=== PATIENT | female | born 1955 | race Caucasian/White ===

== ENCOUNTER 2020-08-19 12:00 | Outpatient (REF) | payer MEDICARE, OTHER, SELFPAY ==
--- NOTE | 2020-08-19 15:15 | MR_ITS ---
MRI OF THE BRAIN WITH AND WITHOUT IV CONTRAST INDICATION: Breast cancer with liver metastases and vision problems. COMPARISON: None available. TECHNIQUE: Multiplanar multisequence MR imaging of the brain was obtained without and following the administration of 10 mL of Gadavist without complication. FINDINGS: There is a solitary peripherally enhancing and centrally cystic versus necrotic intra-axial lesion within the left occipital lobe measuring up to 3.2 cm TV by 3 cm AP, most concerning for a metastatic lesion in light of the clinical history which is surrounded by significant parenchymal edema resulting in local cerebral sulcal effacement without midline shift. A few punctate foci of susceptibility signal along the lower margin of the lesion may reflect small foci of mineralization or trace blood products. There are T2 signal changes within the supratentorial white matter, likely chronic microangiopathy. There is no hydrocephalus, extra-axial surface collection, or herniation. The major flow voids at the skull base are preserved. There is no acute infarct on diffusion-weighted imaging. There is no intracranial hemorrhage on the gradient recalled echo acquisition. The midline structures are normal. The cerebellar tonsils are normally positioned. The cerebellum and brainstem are normal. The craniocervical junction is normal. Osseous marrow signal intensity is homogenous. There is a 1.7 cm soft tissue nodule within the superficial left parotid lobe which is nonspecific. IMPRESSION: - There is a 3.2 cm solitary peripherally enhancing and centrally cystic versus necrotic intra-axial lesion within the left occipital lobe. Surrounding parenchymal edema with mass effect including local cerebral sulcal effacement without midline shift. A few punctate foci of susceptibility signal along the lower margin of the lesion may reflect small foci of mineralization or trace blood products. No definite additional enhancing lesions intracranially though assessment is very limited by the degree of vascular pulsation artifact. High-resolution postcontrast imaging could be obtained as clinically indicated to assess for any additional lesions. - There is a 1.7 cm soft tissue nodule within the superficial left parotid lobe which is nonspecific. Findings discussed with Dr. Cunningham at 2:21 PM on 08/19/2020.
--- NOTE | 2020-08-23 14:11 | MHC.HEMONCSW ---
FAXED MD ORDER FOR STAT PET SCAN TO [facility]. INFORMED THEM THAT PT ALSO HAS A STAT RADIATION CONSULT MATT. AT [facility]. UPDATED DR. SILVERIO.
== END 2020-08-19 12:01 | disposition home or self-care (01) ==
LOC: HO.MRI 12:00
PROVIDERS: Visit Provider Internal Medicine
DX: Z51.11 Encounter for antineoplastic chemotherapy (principal); C50.919 Malignant neoplasm of unspecified site of unspecified female breast; C78.7 Secondary malignant neoplasm of liver and intrahepatic bile duct; C80.1 Malignant (primary) neoplasm, unspecified; C7B.8 Other secondary neuroendocrine tumors; M25.511 Pain in right shoulder; H53.8 Other visual disturbances; F17.210 Nicotine dependence, cigarettes, uncomplicated; Z79.891 Long term (current) use of opiate analgesic; Z85.3 Personal history of malignant neoplasm of breast; Z90.722 Acquired absence of ovaries, bilateral; Z90.13 Acquired absence of bilateral breasts and nipples; Z92.3 Personal history of irradiation
CPT/HCPCS: 47000; 70553; 76942; 88307; 88341; 88342; 88360; 99213

== ENCOUNTER → 2024-07-07 14:26 | Outpatient (RCR) | payer MEDICARE, OTHER, SELFPAY ==
[2020-08-16] VITALS (7 sets, daily range): BP systolic 125–152; BP diastolic 26–70; PULSE 64–73; RESP 18–20; TEMP 36.4–36.6; O2SAT 94–98; BMI 34.4
--- NOTE | 2020-08-16 | US_ITS ---
EXAMINATION: ULTRASOUND-GUIDED LIVER BIOPSY CLINICAL INFORMATION: Liver lesions. History of breast cancer. COMPARISON: Previous CT of the abdomen and pelvis 08/03/2020 TECHNIQUE: Procedure and risks and benefits including bleeding and infection were discussed with the patient and informed consent was obtained. The patient was positioned in the left decubitus position. The right upper quadrant was prepped and draped in the usual sterile fashion. The skin and soft tissues were anesthetized with 1% lidocaine plain. Using ultrasound guidance and a coaxial system, access to a 1.5 cm hypoechoic lesion in the right lobe of the liver was obtained. 5 20-gauge core biopsies were obtained. There is no complication. Patient received Versed 1 mg and fentanyl 50 mcg intravenously during the procedure. Total sedation time was 15 minutes. FINDINGS: There are numerable small hypoechoic lesions seen diffusely throughout the liver suggestive of metastatic disease. A 1.5 cm lesion in the right lobe of the liver was targeted for core biopsy. IMPRESSION: Ultrasound-guided liver biopsy.
[2020-08-16] MEDS: fentaNYL citrate/PF 100 MCG/2 ML VIAL 50 MCG IVPUSH (13:48)
[2020-08-16] MEDS: Lidocaine HCl 1 % MPF 5 ML VIAL SUBCUT (14:38)
[2020-08-16] MEDS: Midazolam HCl/PF 2 MG/2 ML VIAL 1 MG IVPUSH (16:01)
[2020-08-19 09:12] VITALS: BP 114/53; PULSE 76; RESP 18; TEMP 36.1; O2SAT 95; BMI 32.5
--- NOTE | 2020-08-19 09:23 | PM.HEMONCPN ---
Medical Summary - Medical Summary Chief complaint: Follow-up Medical Summary: Diagnosis: Multiple hepatic lesions worrisome for metastatic cancer, history of left breast cancer, BRCA 2 positive, ER positive, AR negative, HER2 positive. Diagnosed with left breast cancer in 2012, underwent lumpectomy/sentinel node biopsy stage T1c N0 on 10/23/2013. One sentinel node negative for malignancy. Residual tumor was about 0.2 cm in size. Found to be BRCA 2 positive, underwent bilateral mastectomy in 2013. Adjuvant chemotherapy with Adriamycin and cyclophosphamide followed by 2 cycles of Taxol and Herceptin for 1 year. 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 Completed 5 years of Arimidex in 2019. 08/20/2014 bilateral mastectomy. Pathology-left simple mastectomy with fat necrosis, calcifications. Right breast simple mastectomy, fat necrosis with calcifications. Bilateral ovarianectomy around 2014. She was followed by Dr. Denise from [facility] until 2019. Medical and Surgical History Hypertension Anxiety Vitamin B12 deficiency Breast cancer, BRCA 2 positive Bilateral mastectomies Oophorectomy Family History Mother of breast cancer at age 48. Father of Alzheimer's at age 84. One brother developed colorectal cancer at age 74, 1 brother of metastatic lung cancer. Social History She is and lives at home with her . She has 4 children. She smokes 5-6 cigarettes daily. Denies alcohol use. Menstrual History Menarche age 13, menopause age 49, 4 para 4. Interval History Interval history: patient is here in follow-up, she is accompanied by her and daughter today. She is doing about the same. Persistent weakness, fatigue, headaches and blurry vision. She is not having focal weakness, numbness or tingling. No falls. No incontinence of bowel or bladder. No chest pain or acute shortness of breath. No significant cough. Review of Systems - Constitutional Reports as per HPI, Reports no additional constitutional complaints [facility] Medical History: Medical History (Last Updated 08/19/20 @ 15:55 by Janey Cunningham MD) Anxiety Breast cancer, left HTN (hypertension) Liver metastasis Vitamin B 12 deficiency Family History: Family History (Last Updated 08/19/20 @ 07:36 by Merline Muro RN) Mother Breast CA Employee No problems noted. Father Alzheimer's dementia Brother Colorectal cancer Metastatic cancer to lung Surgical History: Surgical History (Last Updated 08/16/20 @ 12:42 by Deisi Charles RN) H/O bilateral oophorectomy History of bilateral mastectomy History of lumpectomy of left breast Smoking status: Current every day smoker Home Medications and Allergies Home Medications Medication Instructions Recorded Confirmed Type lisinopril 10 mg PO DAILY 08/16/20 08/16/20 History sertraline 50 mg PO DAILY 08/16/20 08/16/20 History docusate sodium [Colace] 100 mg PO DAILY 08/19/20 08/19/20 History gabapentin 300 mg PO BID 08/19/20 08/19/20 History polyethylene glycol 3350 [Miralax] 17 g PO DAILY 08/19/20 08/19/20 History senna 8.6 mg PO BEDTIME 08/19/20 08/19/20 History Allergies Allergy/AdvReac Type Severity Reaction Status Date / Time codeine [CODEINE] Allergy Unknown NAUSEA/VOMI Verified 08/16/20 12:42 TING Exam Vital signs: Vital Signs Temp 97.0 F 08/19/20 09:12 Pulse 76 08/19/20 09:12 Resp 18 08/19/20 09:12 BP 114/53 L 08/19/20 09:12 Pulse Ox 95 08/19/20 09:12 Intake & Output 08/18/20 08/19/20 08/19/20 18:59 06:59 18:59 Other: Weight 94.12 kg Weight 94.12 kg Body Mass Index 32.5 - Constitutional Present: no acute distress - Routine HEENT Exam Head: Present: normal inspection Eye: Present: EOMI - Routine Neck Exam Absent: lymphadenopathy - Routine Respiratory Exam Present: CTAB - Routine Cardiovascular Exam Cardiovascular: Present: S1, S2 - Routine Abdominal Exam Present: distended, soft - Routine Extremities Exam Absent: calf tenderness, joint swelling - Routine Skin Exam Present: intact - Routine Neurological Exam Present: oriented X3 - Routine Psychiatric Exam Present: normal affect Progress Note: A/P (1) Liver metastases Status: Acute Assessment and plan: 1. This is a 64-year-old woman with history of left breast cancer diagnosed in 2012, status post bilateral mastectomy, stage pT1c N0, ER positive AR negative, HER2 positive invasive ductal carcinoma. She is BRCA 2 positive. She now presents with multiple liver lesions, left periaortic/retroperitoneal lymphadenopathy noted on CT abdomen/pelvis performed 08/03/2020. She is quite symptomatic with pain and weight loss. LDH is over 1000. CEA is 11. CA 27-29 and CA 19- 9 not elevated. Preliminary report from pathologists is it is not breast cancer, appears to be a neuroendocrine tumor. 2. Brain MRI performed 08/19/2020 shows 3.2 cm left occipital lobe enhancing lesion with edema but no right shift. She does report symptoms of headache and bilateral blurry vision. I discussed above findings with patient and family. She is being started on dexamethasone 4 mg p.o. b.i.d.. She is being referred urgently to Radiation Oncology for consultation at [facility]. PET scan is being scheduled for next week. I discussed chemotherapy, tentatively she is being booked for carboplatin/etoposide since it is behaving like a neuroendocrine tumor. Final pathology is pending. We discussed possible side effects of chemotherapy such as cytopenias, risk of infection, organ toxicity, and alopecia. She is willing to proceed with above recommendations. Follow-up in 1 week. - Time Spent With Patient Total time spent is greater than 50% in coordination of care (as documented) at patient's floor/unit and/or counseling patient: 25 - 35 minutes
--- NOTE | 2020-08-19 11:33 | MHC.HEMONCSW ---
pt informed today she has aggressive stage 4 cancer, primary site unknown at this time. going for mri of brain. supportive counseling provided.
--- NOTE | 2020-08-19 12:33 | MHC.HEMONCNA ---
medicare insurance. no pa required for chemotherapy.
--- NOTE | 2020-08-19 12:54 | MHC.HEMONC ---
Exam; Biopsy completed 08/16, brain MRI being completed today. Plan for PET Scan this Saturday, chemo tentatively booked for 08/24 for carboplatin/etoposide. Patient made aware, jamie in pharmacy made aware. Per anh weber not need PA for chemo. Patient has medicare. official Chemo teach and consent not completed awaiting Final pathology. Patient/daughter given info on carbo/etoposide. Please call daughter with anything.
--- NOTE | 2020-08-24 09:41 | MHC.HEMONCSW ---
MEDICARE INSURANCE. FAXED MD ORDER FOR PET SCAN TO [facility]. THEY WILL EXPEDITE AND SCHEDULE PT...THEY DWIGHT;L LET DAUGHTER KNOW OF DATE AND TIME.
--- NOTE | 2020-08-24 10:39 | MHC.HEMONCSW ---
[facility] SCHEDULED WITH DAUGHTER FOR 09/01/20 9:50AM. THEY DO NOT HAVE A SOONER APPOINTMENT.
--- NOTE | 2020-09-09 11:09 | P.PNHO_ITS ---
Medical Summary - Medical Summary Chief complaint: Right shoulder pain Medical Summary: Diagnosis: Multiple hepatic lesions worrisome for metastatic cancer, history of left breast cancer, BRCA 2 positive, ER positive, MA negative, HER2 positive. Diagnosed with left breast cancer in 2012, underwent lumpectomy/sentinel node biopsy stage T1c N0 on 10/23/2013. One sentinel node negative for malignancy. Residual tumor was about 0.2 cm in size. Found to be BRCA 2 positive, underwent bilateral mastectomy in 2013. Adjuvant chemotherapy with Adriamycin and cyclophosphamide followed by 2 cycles of Taxol and Herceptin for 1 year. 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 Completed 5 years of Arimidex in 2019. 08/20/2014 bilateral mastectomy. Pathology-left simple mastectomy with fat necrosis, calcifications. Right breast simple mastectomy, fat necrosis with calcifications. Bilateral ovarianectomy around 2014. She was followed by Dr. Denise from [facility] until 2019. Biopsy of liver lesion performed 08/16/2020 revealed well-differentiated neuroendocrine tumor, grade 2. Immunostains were reactive for CDX2, nonreactive for TTF1 suggesting primary from GI tract or pancreas and not lung primary. Ki 67 index was approximately 5%. Brain MRI performed 08/19/2020 revealed 3.2 cm peripherally enhancing necrotic mass within the left occipital lobe surrounding parenchymal edema including sulcal effacement without midline shift. Additional brain lesions could not be ruled out because of vascular pulsation artifact. Patient received whole-brain radiation treatment at [facility]. PET-CT performed 09/01/2020 at [facility] revealed large 6.4 cm centrally necrotic intensely hypermetabolic mass in the right upper lobe suggestive of malignancy. Metastatic left supraclavicular lymph node, numerous hypermetabolic liver metastasis, mildly hypermetabolic left para-aortic lymph nodes and focus of activity or in left occipital lobe all confirming metastasis. Family History Mother of breast cancer at age 48. Father of Alzheimer's at age 84. One brother developed colorectal cancer at age 74, 1 brother of metastatic lung cancer. Social History She is and lives at home with her . She has 4 children. She smokes 5-6 cigarettes daily. Denies alcohol use. Menstrual History Menarche age 13, menopause age 49, 4 para 4. Interval History Interval history: patient is here in follow-up, she is accompanied by her and daughter today. She has developed significantly severe right shoulder pain for the last 2 weeks. She has been taking 10 mg of oxycodone every 4 hours. She reports the pain is constant, not radiating, not associated with numbness or tingling or weakness of the right upper extremity. She has no acute cough, no fever or chills. She is not having focal weakness, numbness or tingling. No falls. No incontinence of bowel or bladder. She had MRI of spine at [facility] and this was reported as negative, no bone metastasis or cord compression. She continues to have blurry vision and this has not changed with brain radiation. She just completed brain radiation as of today. Review of Systems - Constitutional Reports no additional constitutional complaints - Eyes Reports change in vision - Cardiovascular Reports no additional cardiovascular complaints - Respiratory Reports no additional respiratory complaints [facility] Medical History: Medical History (Last Updated 08/19/20 @ 15:55 by Janey Cunningham MD) Anxiety Breast cancer, left HTN (hypertension) Liver metastasis Vitamin B 12 deficiency Family History: Family History (Last Updated 08/19/20 @ 07:36 by Merline Muro RN) Mother Breast CA Employee No problems noted. Father Alzheimer's dementia Brother Colorectal cancer Metastatic cancer to lung Surgical History: Surgical History (Last Updated 08/16/20 @ 12:42 by Deisi Charles RN) H/O bilateral oophorectomy History of bilateral mastectomy History of lumpectomy of left breast Smoking status: Current every day smoker Home Medications and Allergies Home Medications Medication Instructions Recorded Confirmed Type lisinopril 10 mg PO DAILY 08/16/20 08/16/20 History docusate sodium [Colace] 100 mg PO DAILY 08/19/20 08/19/20 History gabapentin 300 mg PO BID 08/19/20 08/19/20 History polyethylene glycol 3350 [Miralax] 17 g PO DAILY 08/19/20 08/19/20 History senna 8.6 mg PO BEDTIME 08/19/20 08/19/20 History Allergies Allergy/AdvReac Type Severity Reaction Status Date / Time codeine [CODEINE] Allergy Unknown NAUSEA/VOMI Verified 08/16/20 12:42 TING Exam Vital signs: Vital Signs Temp 97.0 F 08/19/20 09:12 Pulse 76 08/19/20 09:12 Resp 18 08/19/20 09:12 BP 114/53 L 08/19/20 09:12 Pulse Ox 95 08/19/20 09:12 Weight 94.12 kg Body Mass Index 32.5 - Constitutional Present: no acute distress - Routine HEENT Exam Head: Present: normal inspection - Routine Neck Exam Absent: lymphadenopathy - Routine Respiratory Exam Present: CTAB - Routine Cardiovascular Exam Cardiovascular: Present: S1, S2 - Routine Abdominal Exam Present: distended, soft - Routine Extremities Exam Absent: calf tenderness, joint swelling - Routine Skin Exam Present: intact - Routine Neurological Exam Present: oriented X3 - Routine Psychiatric Exam Present: normal affect Progress Note: A/P (1) Liver metastases Status: Acute (2) Metastatic malignant neuroendocrine tumor to liver Status: Acute Assessment and plan: 1. This is a 64-year-old woman with history of left breast cancer diagnosed in 2012, status post bilateral mastectomy, stage pT1c N0, ER positive MA negative, HER2 positive invasive ductal carcinoma. She is BRCA 2 positive. She now presents with metastatic neuroendocrine tumor. Final pathology: well- differentiated neuroendocrine tumor, grade 2. Immunostains were reactive for CDX2, nonreactive for TTF1 suggesting primary from GI tract or pancreas and not lung primary. Ki 67 index was approximately 5%. LDH is over 1000. Brain MRI performed 08/19/2020 shows 3.2 cm left occipital lobe enhancing lesion with edema but no right shift. She does report symptoms of headache and bilateral blurry vision. She underwent whole-brain radiotherapy at [facility] as of 09/09/2020. PET scan shows a large right upper lobe necrotic tumor with SUV 18.2. Numerous hypermetabolic lesions throughout liver, maximum SUV 12.1, hypermetabolic para- aortic lymph nodes, left supraclavicular lymph node and left occipital lobe lesion also seen. Clinically, her malignancy is behaving rather aggressively and not like a well- differentiated neuroendocrine tumor. LDH was over a 1000 and she has diffuse metastasis including brain metastasis. 2. Right shoulder pain which is quite severe. She is on oxycodone 10 mg every 4 hours as needed. She did not tolerate long-acting morphine, made her throw up. Right shoulder pain could be coming from right lung mass?. I will review these findings with radiologist and consider biopsy if possible. I discussed systemic therapy, chemotherapy with carboplatin and etoposide administered day 1-3 Q 21 day cycle. Growth factor support with Neulasta will be administered. Possible side effects such as cytopenias, risk of infection, GI side effects were all discussed. - Time Spent With Patient Total time spent is greater than 50% in coordination of care (as documented) at patient's floor/unit and/or counseling patient: Greater than 35 minutes
[2020-09-09 11:25] VITALS: BP 114/51; PULSE 71; TEMP 36.3; O2SAT 97
[2020-09-09 11:27] VITALS: BMI 32.3
--- NOTE | 2020-09-09 11:57 | P.PNHO_ITS ---
[facility] Medical History: Medical History (Last Updated 08/19/20 @ 15:55 by Janey Cunningham MD) Anxiety Breast cancer, left HTN (hypertension) Liver metastasis Vitamin B 12 deficiency Family History: Family History (Last Updated 08/19/20 @ 07:36 by Merline Muro, [place]) Mother Breast CA Employee No problems noted. Father Alzheimer's dementia Brother Colorectal cancer Metastatic cancer to lung Surgical History: Surgical History (Last Updated 08/16/20 @ 12:42 by Deisi Charles RN) H/O bilateral oophorectomy History of bilateral mastectomy History of lumpectomy of left breast Smoking status: Current every day smoker Home Medications and Allergies Home Medications Medication Instructions Recorded Confirmed Type lisinopril 10 mg PO DAILY 08/16/20 08/16/20 History docusate sodium [Colace] 100 mg PO DAILY 08/19/20 08/19/20 History gabapentin 300 mg PO BID 08/19/20 08/19/20 History polyethylene glycol 3350 [Miralax] 17 g PO DAILY 08/19/20 08/19/20 History senna 8.6 mg PO BEDTIME 08/19/20 08/19/20 History Allergies Allergy/AdvReac Type Severity Reaction Status Date / Time codeine [CODEINE] Allergy Unknown NAUSEA/VOMI Verified 08/16/20 12:42 TING Exam Vital signs: Vital Signs Temp 97.0 F 08/19/20 09:12 Pulse 76 08/19/20 09:12 Resp 18 08/19/20 09:12 BP 114/53 L 08/19/20 09:12 Pulse Ox 95 08/19/20 09:12 Weight 94.12 kg Body Mass Index 32.5 - Constitutional Present: no acute distress - Routine HEENT Exam Head: Present: normal inspection - Routine Neck Exam Absent: lymphadenopathy - Routine Respiratory Exam Present: CTAB - Routine Cardiovascular Exam Cardiovascular: Present: S1, S2 - Routine Abdominal Exam Present: distended, soft - Routine Extremities Exam Absent: calf tenderness, joint swelling - Routine Skin Exam Present: intact - Routine Neurological Exam Present: oriented X3 - Routine Psychiatric Exam Present: normal affect Progress Note: A/P (1) Liver metastases Status: Acute (2) Metastatic malignant neuroendocrine tumor to liver Status: Acute Assessment and plan: 1. This is a 64-year-old woman with history of left breast cancer diagnosed in 2012, status post bilateral mastectomy, stage pT1c N0, ER positive MI negative, HER2 positive invasive ductal carcinoma. She is BRCA 2 positive. She now presents with metastatic neuroendocrine tumor. Final pathology: well- differentiated neuroendocrine tumor, grade 2. Immunostains were reactive for CDX2, nonreactive for TTF1 suggesting primary from GI tract or pancreas and not lung primary. Ki 67 index was approximately 5%. LDH is over 1000. Brain MRI performed 08/19/2020 shows 3.2 cm left occipital lobe enhancing lesion with edema but no right shift. She does report symptoms of headache and bilateral blurry vision. I discussed above findings with patient and family. She is being started on dexamethasone 4 mg p.o. b.i.d.. She is being referred urgently to Radiation Oncology for consultation at [facility]. PET scan is being scheduled for next week. I discussed chemotherapy, tentatively she is being booked for carboplatin/etoposide since it is behaving like a neuroendocrine tumor. - Time Spent With Patient Total time spent is greater than 50% in coordination of care (as documented) at patient's floor/unit and/or counseling patient:
--- NOTE | 2020-09-09 14:27 | MHC.HEMONC ---
pt seen following appt with Dr Cunningham. Treatment of chemotherapy with Carboplatin and Etoposide discussed with pt and family. I gave her pt information on drugs and Chemotherapy and You book. Her and daughters were present. Discussed common side effects of drugs and ways to manage them at home. Also reviewed reason(s) to call the Clinic. Pt verbalized understanding and signed consent. Pt to start next Saturday.
--- NOTE | 2020-09-09 15:56 | MHC.HEMONCSW ---
FAMILY MEETING HELD. PRESENT...PT, , DAUGHTERS JEMIMA AND JOSE ALBERTO, RNS MARIA ANTONIA AND MISSY, INCLUDING MYSELF AND DR. SILVERIO. SHE WAS INFORMED OF EXTENT OF METASTASIS, WANTS CHEMOTHERAPY SHE RECENTLY FINISHED RADIATION THERAPY. INCREASE IN CONFUSION COULD BE DUE TO BRAIN METS OR FACT SHE IS DOUBLING HER MEDS DUE TO BEING CONFUSED. FAMILY NOW ADMINISTERS THEM TO HER. PT AMBULATES WITH CONTACT GUARD. REFERRAL GIVEN BOTH VERBALLY TO RONALD THOMAS LPN PALLIATIVE PROGRAM AND, BY FAX. MUCH EDUCATION, GUIDANCE AND SUPPORT PROVIDED.
[2020-09-14 09:02] VITALS: BP 111/56; PULSE 80; RESP 18; TEMP 36.4; O2SAT 98; BMI 32.7
[2020-09-14 09:35] LABS: Basophils Percent Auto 0.2 % (0-2); Eosinophils Percent Auto 0.1 % (0-4); Hematocrit 34.9 % (37-47); Imm Gran Abs Auto 0.03 X10*3/uL (0.00-0.03); Imm Gran Pct Auto 0.3 % (0.0-0.4); Lymphocytes Absolute Auto 0.2 X10*3/uL (1.2-4.9); Lymphocytes Percent Auto 2.6 % (20-40); MANUAL DIFF FLAG SCAN; Mean Corpuscular HGB Conc 31.5 g/dl (31.0-35.0); Mean Corpuscular Hemoglobin 28.6 pg (27.0-33.0); Mean Corpuscular Volume 90.6 fL (80-98); Mean Platelet Volume 11.9 fL (9.4-12.3); Monocytes Absolute Auto 0.6 X10*3/uL (0.1-1.2); Monocytes Percent Auto 7.3 % (2-11); Neutrophils Absolute Auto 7.8 X10*3/uL (2.0-8.3); Neutrophils Percent Auto 89.5 % (45-73); Platelet Count 180 X10*3/uL (160-400); Red Blood Count 3.85 X10*6/uL (4.20-5.50); Red Cell Distribution Width 18.5 % (11.0-16.0); SCAN SMEAR FLAG 1; White Blood Count 8.8 X10*3/uL (4.8-10.8)
[2020-09-14 10:01] LABS: Alanine Aminotransferase 24 U/L (0-31); Albumin Level 3.8 g/dL (3.5-5.0); Alkaline Phosphatase 103 U/L (39-117); Anion Gap 15 (12-20); Aspartate Amino Transferase 30 U/L (5-31); Bilirubin Total 1.4 mg/dL (0.0-1.0); Blood Urea Nitrogen 15 mg/dL (9-16); Calcium 8.2 mg/dL (8.4-10.2); Carbon Dioxide 22 mmol/L (22-29); Chloride 106 mmol/L (96-108); Creatinine Clr Calc Pharmacy 59.8; Estimated Glomerular Filt Rate 51; Glucose Random 150 mg/dL (60-115); Potassium 4.5 mmol/l (3.3-5.1); Sodium 138 mmol/L (135-145); Total Protein 6.2 g/dL (6.5-8.0)
[2020-09-14 10:22] LABS: SLIDE REVIEW VERIFIED
[2020-09-14] MEDS: diphenhydrAMINE HCL 25 MG TABLET PO (10:22)
[2020-09-14] MEDS: Famotidine/PF 20 MG/2 ML VIAL IVPUSH (10:23)
[2020-09-14] MEDS: ondansetron HCL/NS 16 MG/50 ML PIGGYBACK 200 MG IV (10:23)
[2020-09-14] MEDS: dexAMETHasone sod phosphate/NS 12 MG/50 ML PIGGYBACK 200 MG IV (10:50)
[2020-09-14] MEDS: Fosaprepitant Dimeglumine 150 MG in 0.9 % Sodium Chloride 145 ML 300 MG IV (11:38)
[2020-09-14] MEDS: oxyCODONE HCl Immed Release 5 MG TABLET PO (14:11)
[2020-09-14 14:45] LABS: Lactate Dehydrogenase 192 U/L (122-220)
--- NOTE | 2020-09-14 16:46 | MHC.HEMONC ---
Pt here for c1d1 Carbo/Etoposide. Labs reviewed and acceptable for treatment. Pt educated regarding plan for the day. She tolerated chemo and pre-meds very well. She is accepting of port placement as PIV access is limited. Dr Cunningham to arrange. Pt left with education to hold dex tonight . She was given oxycodone 5mg po today for right shoulder pain prior to leaving. Return tomorrow for day#2 Etoposide. IV patent and wrapped for tomorrow.
[2020-09-15 13:19] VITALS: BMI 33.7
[2020-09-15 13:21] VITALS: BP 149/60; PULSE 73; RESP 20; TEMP 36.6; O2SAT 98
[2020-09-15] MEDS: ondansetron HCL/NS 16 MG/50 ML PIGGYBACK 200 MG IV (14:20)
--- NOTE | 2020-09-15 16:22 | MHC.HEMONC ---
Pt here for chemo infusion. States did not sleep well last night, otherwise tolerated treatment from 09/14 well. Attempted to flush IV, site leaking. IV removed and new IV inserted. Received chemo infusion and tolerated well. To return tomorrow for another chemo infusion.
[2020-09-16 10:24] VITALS: BMI 33.6
[2020-09-16 10:25] VITALS: BP 107/45; PULSE 74; RESP 20; O2SAT 97
[2020-09-16] MEDS: ondansetron HCL/NS 16 MG/50 ML PIGGYBACK 200 MG IV (10:57)
--- NOTE | 2020-09-16 13:35 | MHC.HEMONC ---
Pt here for chemo infusion. Was sent home yesterday with IV in place, IV flushed well, no s/s infiltration. Chemo infused well, pt tolerated well. IV removed, site without redness or swelling.
--- NOTE | 2020-09-16 13:44 | MHC.HEMONCSW ---
EARL RN FROM [facility] PALLIATIVE IS DOING FIRST VISIT TODAY. PT JUST FINISHED RT AND 3RD CHEMO TREATMENT. PERIODS OF CONFUSION. DAUGHTER JEMIMA CONCERNED SHE IS USING TOO MUCH OPIATES. PALLIATIVE AWARE AND WILL ASSESS. EDUCATION AND BRIEF COUNSELING PROVIDED. SPOKE WITH PT, AND JEMIMA.
--- NOTE | 2020-09-19 15:27 | MHC.HEMONCSW ---
SPOKE WITH THERESA GERARDO AT [facility]....SHE REPORTS PT STARTED PALLIATIVE PROGRAM THIS PAST SATURDAY. RECEIVING [employer], I.E., RN, CINDI, HUMAIRA, CHAPLAIIN, OT/PT. REPORTS COPING MUCH BETTER NOW.
--- NOTE | 2020-09-26 08:48 | MHC.HEMONCSW ---
DAUGHTER JEMIMA CALLED, MOTHER HAD A DIFFICULT WEEKEND AND WANTS [facility]. RELAYED THIS TO DR. SILVERIO AND REFERRAL WILL BE MADE.
--- NOTE | 2020-09-26 08:51 | MHC.HEMONCSW ---
REFERRAL GIVEN TO PEYMAN AT [facility].
== END | disposition home or self-care (01) ==
LOC: HO.ONC 08-19 10:38
PROVIDERS: Radiology Diagnostic Radiology; Visit Provider Internal Medicine
DX: Z51.11 Encounter for antineoplastic chemotherapy (principal); C80.1 Malignant (primary) neoplasm, unspecified; C7B.8 Other secondary neuroendocrine tumors; M25.511 Pain in right shoulder; H53.8 Other visual disturbances; F17.210 Nicotine dependence, cigarettes, uncomplicated; Z79.891 Long term (current) use of opiate analgesic; Z85.3 Personal history of malignant neoplasm of breast; Z90.722 Acquired absence of ovaries, bilateral; Z90.13 Acquired absence of bilateral breasts and nipples; Z92.3 Personal history of irradiation
CPT/HCPCS: 36415; 47000; 76942; 80053; 83615; 83735; 85025; 88307; 88341; 88342; 88360; 96366; 96367; 96375; 96413; 96415; 96417; 99213; 99215; J1100; J1453; J2405; J9045; J9181; Q0163